=== PATIENT | female | born 1970 | race Caucasian/White ===

== ENCOUNTER 2017-09-06 10:54 | Outpatient (CLI) ==
[2017-09-09 13:50] VITALS: BMI 28.3
== END 2017-09-06 10:55 | disposition home or self-care (01) ==
LOC: LAB 10:54
PROVIDERS: ATTEND Family Medicine
DX: R03.0 Elevated blood-pressure reading, without diagnosis of hypertension (principal)
CPT/HCPCS: 36415; 80053; 80061; 85025; 93005; 93010

== ENCOUNTER 2017-09-07 21:23 | Emergency (ER) ==
[2017-09-07 21:43] VITALS: TEMP 98.7; BMI 28.3
[2017-09-07] MEDS ORDERED: PHENERGAN 25 MG/ML VIAL IM STA (22:16)
[2017-09-07] MEDS ORDERED: DEMEROL 50 MG/ML VIAL IM STA (22:16)
[2017-09-07] MEDS ORDERED: TYLENOL PO STA (22:22)
--- NOTE | 2017-09-07 22:30 | ED.PDOC ---
General ED Provider: Dr. NEEL BAILEY Chief Complaint: Hypertension Stated Complaint: Patient is a 46 year old female who was recently diagnosed with Hypertension and started on Lisinopril HCTZ which she has taken one dose- yesterday Today she decided to take someone elses Metoprolol when her blood pressure was 190s. Also has a headache mostly on the right frontal Time Seen by Physician: 22:23 Mode of Arrival: Walk-In Information Source: Patient Exam Limitations: No limitations Primary Care Provider: NETO ATKINS Nursing and Triage Documentation Reviewed and Agree: Yes Reviewed sepsis parameters & appropriate labs ordered?: No System Inflammatory Response Syndrome: Not Applicable Sepsis Protocol: For patient's 13 years and over: Temp is 96.8 and below OR 101 and greater Pulse >90 BPM Resp >20/minute Acutely Altered Mental Status Are patient's symptoms suggestive of a new infection, such as: -Pneumonia -Skin, Soft Tissue -Endocarditis -UTI -Bone, Joint Infection -Implantable Device -Acute Abdominal Infection -Wound Infection -Meningitis -Blood Stream Catheter Infection -Unknown System Inflammatory Response Syndrome: Not Applicable Review of Systems - Review Of Systems Constitutional: Reports: No symptoms Eyes: Reports: No symptoms Ears, Nose, Mouth, Throat: Reports: No symptoms Respiratory: Reports: No symptoms Cardiac: Reports: No symptoms GI: Reports: No symptoms : Reports: No symptoms Musculoskeletal: Reports: No symptoms Skin: Reports: No symptoms Neurological: Reports: Anxiety, Headache Endocrine: Reports: No symptoms Hematologic/Lymphatic: Reports: No symptoms All Other Systems: Reviewed and Negative Past Medical History - Past Medical History Previously Healthy: Yes Endocrine: Reports: None Cardiovascular: Reports: Hypertension Respiratory: Reports: None Hematological: Reports: None Gastrointestinal: Reports: None Genitourinary: Reports: None Neuro/Psych: Reports: Migraine Musculoskeletal: Reports: None Cancer: Reports: None Last Menstrual Period: SEP 02, 2017 - Surgical History General Surgical History: Reports: Tubal ligation, Tonsillectomy - Family History Family History: Reports: Unknown - Social History Smoking Status: Never smoker Hx Substance Use: No Alcohol Screening: Occasionally - Immunizations Tetanus Shot up to Date: Yes Physical Exam - Physical Exam Appearance: Ill-appearing Eyes: FARHEEN, EOMI, Conjunctiva clear Neck: Supple Respiratory: Airway patent, Breath sounds clear, Breath sounds equal, Respirations nonlabored Cardiovascular: RRR, Pulses normal, No rub, No murmur GI/: Soft, Nontender, No masses, Bowel sounds normal, No Organomegaly Musculoskeletal: Normal strength, ROM intact, No edema, No calf tenderness Skin: Warm, Dry, Normal color Neurological: Sensation intact, Motor intact, Reflexes intact, Cranial nerves intact, Alert, Oriented Psychiatric: Anxious Critical Care Note - Critical Care Note Total Time (mins): 0 Course - Course Orders, Labs, Meds: Orders Category Date Time Status Acetaminophen [Tylenol] MEDS 09/07/17 22:22 Discontinued 1,000 mg PO ONCE STA Medications Discontinued Medications Generic Name Dose Route Start Last Admin Trade Name Teagan PRN Reason Stop Dose Admin Acetaminophen 1,000 mg 09/07/17 22:22 09/07/17 22:32 Tylenol PO 09/07/17 22:23 1,000 mg ONCE STA Administration Vital Signs: Temp Pulse Resp BP Pulse Ox 09/07/17 22:33 60 20 176/73 H 98 09/07/17 21:24 98.7 F 68 18 146/86 H 98 Departure - Departure Time of Disposition: 23:43 Disposition: HOME SELF-CARE Discharge Problem: Hypertension Qualifiers: Hypertension type: essential hypertension Qualified Code(s): I10 - Essential ( primary) hypertension Headache Qualifiers: Headache type: unspecified Headache chronicity pattern: acute headache Intractability: not intractable Qualified Code(s): R51 - Headache Instructions: Hypertension (ED) Condition: Stable Pt referred to PMD for follow-up: Yes IPMP verified?: No Additional Instructions: Continue home blood pressure medications Take you blood pressure reading daily Follow up with PCP in 2-3 days Take Tylenol or Excedrin migraine Allergies/Adverse Reactions: Allergies Penicillins Allergy (Verified 09/07/17 21:41) nausea Disposition Discussed With: Patient, Family
[2017-09-07 22:38] VITALS: BP 176/73
[2017-09-08] MEDS ORDERED: TESSALON PERLES PO STA (06:02)
== END 2017-09-07 23:55 | disposition home or self-care (01) ==
LOC: ED 21:23
DX: I10 Essential (primary) hypertension (principal); R51 Headache
CPT/HCPCS: 99283

== ENCOUNTER 2017-10-14 13:59 | Outpatient (CLI) ==
[2017-09-09 13:50] VITALS: BMI 28.3
== END 2017-10-14 14:00 | disposition home or self-care (01) ==
LOC: FCC-LAB 13:59
PROVIDERS: ATTEND Family Medicine
DX: I10 Essential (primary) hypertension (principal)
CPT/HCPCS: 36415; 80053